=== PATIENT | female | born 1940 | race Two or more races ===

== ENCOUNTER 2016-10-09 10:26 | Outpatient (CLI) | payer MEDICARE, BC ==
--- NOTE | 2016-10-12 09:54 | Mammography Report ---
DIGITAL BILATERAL SCREENING MAMMOGRAM: 10/09/2016 CLINICAL HISTORY: A 76-year-old female in for routine screening mammogram. The patient had a maternal cousin with breast cancer at age 50. The patient has had multiple surgeries involving the left breas t. These biopsies were benign. They were done in 1988 and 1992. COMPARISON: 07/14/2007, 12/06/2008, 02/09/2010, 04/23/2011, 05/04/2013, 06/08/2014, 05/28/2015. TECHNIQUE: Craniocaudad and oblique lateral views of each breast were obtained with Transfercar full fiel d digital mammography. To complement the examination, axillary exaggerated craniocaudad views of each breast were done. FINDINGS: Heterogeneously dense breasts are noted bilaterally. No significant clusters of calcification are seen. No significant masses are noted. No significant ch anges are seen. IMPRESSION: THE BREASTS APPEAR RADIOGRAPHICALLY BENIGN. BIRADS CATEGORY 1-NEGATIVE. RECOMMENDATION: ANNUAL BILATERAL SCREENING MAMMOGRAPHY. STANDARD QUALIFYING STATEMENTS 1. This examination was reviewed with the aid of Computer-Aided Detection (CAD). 2. A negative or benign imaging report should not delay biopsy if clinically suspicious findings are present. Consider surgical consultation if warranted. More than 5% of cancers are not identified by i maging. 3. Dense breasts may obscure an underlying neoplasm. JOB #: [id number] EXT JOB #:[id number]
== END 2016-10-09 10:27 | disposition home or self-care (01) ==
LOC: DI.N 10:26
PROVIDERS: ATTEND Internal Medicine
DX: Z12.31 Encounter for screening mammogram for malignant neoplasm of breast (principal)
CPT/HCPCS: 77067

== ENCOUNTER 2016-12-17 10:35 | Outpatient (CLI) | payer MEDICARE, BC ==
[2016-12-17 19:36] LABS: BASOPHILS # (AUTO) 0.1 10^3/uL (0.0-0.1); BILIRUBIN,URINE NEGATIVE (NEGATIVE); EOSINOPHILS # (AUTO) 0.2 10^3/uL (0.0-0.7); EOSINOPHILS % (AUTO) 3.9 %; HCT - HEMATOCRIT 39.2 % (37.0-47.0); HGB - HEMOGLOBIN 12.5 g/dL (12.0-16.0); LYMPHOCYTES # (AUTO) 2.2 10^3/uL (1.5-3.5); LYMPHOCYTES % (AUTO) 38.4 %; MEAN CORPUSCULAR HEMOGLOBIN 27.3 pg (27.0-31.0); MEAN CORPUSCULAR HGB CONC 31.8 g/dL (32.0-36.0); MEAN CORPUSCULAR VOLUME 85.8 fL (81.0-99.0); MEAN PLATELET VOLUME 9.5 fL (7.9-10.8); MONOCYTES # (AUTO) 0.3 10^3/uL (0.0-1.0); MONOCYTES % (AUTO) 5.5 %; NEUTROPHILS # (AUTO) 2.9 10^3/uL (1.5-6.6); NEUTROPHILS % (AUTO) 51.2 %; NUCLEATED RED BLOOD CELLS AUTO 0.1 /100WBC; PH,URINE 5.5 PH (5.0-7.5); RED BLOOD COUNT 4.57 10^6/uL (4.20-5.40); UNCORRECTED WHITE BLOOD COUNT 5.7 x10^3/uL; WHITE BLOOD COUNT 5.7 x10^3/uL (4.8-10.8)
[2016-12-17 19:53] LABS: HEMOGLOBIN A1C 1.02 g/dL
[2016-12-17 19:58] LABS: UA w/ MICROSCOPIC CHARGE YES; WBC,URINE 0-3 /HPF (0-5)
[2016-12-17 19:59] LABS: ALBUMIN/GLOBULIN RATIO 1.4 (1.0-2.2); BILIRUBIN,TOTAL 0.6 mg/dL (0.2-1.0); BUN - BLOOD UREA NITROGEN 15 mg/dL (6-20); CALCIUM 9.4 mg/dL (8.5-10.3); CARBON DIOXIDE - CO2 28 mmol/L (21-32); CHLORIDE 103 mmol/L (101-111); CHOL/HDL RATIO 3.9 (<4.4); CHOLESTEROL 190 mg/dL; CREATININE 0.6 mg/dL (0.4-1.0); GFR - MDRD 97 (>89); GLUCOSE 143 mg/dL (70-100); HDL CHOLESTEROL 49 mg/dL; LDL/HDL RATIO 2.4 (<4.4); POTASSIUM 4.1 mmol/L (3.5-5.0); SODIUM 138 mmol/L (135-145); TOTAL PROTEIN 7.1 g/dL (6.7-8.2); TRIGLYCERIDES 122 mg/dL; URIC ACID 4.7 mg/dL (2.6-7.2); VLDL CHOLESTEROL 24 mg/dL
== END 2016-12-17 10:36 | disposition home or self-care (01) ==
LOC: LAB.N 10:35
PROVIDERS: ATTEND Internal Medicine
DX: Z79.899 Other long term (current) drug therapy (principal); I10 Essential (primary) hypertension; E04.1 Nontoxic single thyroid nodule; Z87.11 Personal history of peptic ulcer disease; E78.5 Hyperlipidemia, unspecified; E11.9 Type 2 diabetes mellitus without complications; M81.0 Age-related osteoporosis without current pathological fracture
CPT/HCPCS: 36415; 80053; 80061; 81001; 81003; 82043; 82306; 82570; 82607; 83036; 84443; 84550; 85025

== ENCOUNTER 2017-06-25 07:55 | Outpatient (CLI) | payer MEDICARE, BC | END 2017-06-25 07:56 | disposition home or self-care (01) | LOC: EMS 07:55 | PROVIDERS: ATTEND Surgery | DX: R11.2 Nausea with vomiting, unspecified (principal) | CPT/HCPCS: A0425; A0427 ==

== ENCOUNTER 2017-06-25 08:43 | Emergency (ER) | payer MEDICARE, BC ==
[2017-06-25 09:15] LABS: BASOPHILS % (AUTO) 0.5 %; EOSINOPHILS % (AUTO) 0.2 %; LYMPHOCYTES # (AUTO) 0.9 10^3/uL (1.5-3.5); LYMPHOCYTES % (AUTO) 15.4 %; MEAN CORPUSCULAR HEMOGLOBIN 27.9 pg (27.0-31.0); MEAN CORPUSCULAR HGB CONC 33.2 g/dL (32.0-36.0); MEAN CORPUSCULAR VOLUME 84.1 fL (81.0-99.0); MEAN PLATELET VOLUME 9.7 fL (7.9-10.8); MONOCYTES # (AUTO) 0.5 10^3/uL (0.0-1.0); NEUTROPHILS # (AUTO) 4.3 10^3/uL (1.5-6.6); NEUTROPHILS % (AUTO) 75.9 %; PLT - PLATELET COUNT 169 10^3/uL (130-450); RED BLOOD COUNT 5.02 10^6/uL (4.20-5.40); RED CELL DISTRIBUTION WIDTH 14.2 % (12.0-15.0); WHITE BLOOD COUNT 5.7 x10^3/uL (4.8-10.8)
[2017-06-25] MEDS ORDERED: SODIUM CHLORIDE 0.9% 1,000 ML IV ONE (09:19)
[2017-06-25 09:25] LABS: ALBUMIN 3.8 g/dL (3.2-5.5); ALBUMIN/GLOBULIN RATIO 1.2 (1.0-2.2); BILIRUBIN,TOTAL 0.5 mg/dL (0.2-1.0); CALCIUM 8.2 mg/dL (8.5-10.3); CREATININE 0.6 mg/dL (0.4-1.0); TOTAL PROTEIN 6.9 g/dL (6.7-8.2)
[2017-06-25 09:28] LABS: BILIRUBIN,URINE NEGATIVE (NEGATIVE); GLUCOSE, URINE (UA) >=1000 mg/dL (NEGATIVE); KETONES,URINE (UA) NEGATIVE (NEGATIVE); LEUKOCYTE ESTERASE, URINE NEGATIVE (NEGATIVE); NITRITE,URINE NEGATIVE (NEGATIVE); OCCULT BLOOD,URINE NEGATIVE (NEGATIVE); PROTEIN,URINE NEGATIVE (NEGATIVE); UROBILINOGEN,URINE 0.2 (NORMAL) E.U./dL (NORMAL)
[2017-06-25 09:29] LABS: CLARITY,URINE CLEAR (CLEAR)
--- NOTE | 2017-06-25 10:28 | ED Physician Documentation ---
History of Present Illness - Stated complaint Stated Complaint: N/V/D - Chief complaint Chief Complaint: General - History obtained from History obtained from: Patient, EMS - Treatment prior to arrival Treatment prior to arrival: Medics administered D50 W and Zofran IV. - Additonal information Additional information: The patient is a 77-year-old female with history of type 2 diabetes, who presents after developing drowsiness and generalized weakness at home. She has had the "stomach flu" for the past 3 days with vomiting and diarrhea. She has vomited only once in the past 24 hours. She reports decreased oral intake for the past 3 days because of nausea. She denies abdominal pain currently. She denies fever, cough, or dysuria. When 911 was called, medics found her hypoglycemic with a blood sugar of 68. One amp of D50 W and 4 mg Zofran were administered IV. The patient's symptoms resolved, and at the time of arrival in the emergency department she is feeling asymptomatic. She denies history of similar symptoms in the past. Her son had "stomach flu" symptoms for 1 day prior to the patient developing similar viral symptoms. Review of Systems Constitutional: reports: Fatigue. denies: Fever Eyes: denies: Decreased vision Ears: denies: Tinnitus/ringing Nose: denies: Congestion Throat: denies: Sore throat Cardiac: denies: Chest pain / pressure Respiratory: denies: Dyspnea, Cough GI: reports: Nausea, Vomiting (Once in past 24 hours.), Diarrhea. denies: Abdominal Pain : denies: Dysuria Skin: denies: Rash Musculoskeletal: denies: Back pain, Extremity swelling Neurologic: denies: Focal weakness, Numbness, Headache PD PAST MEDICAL HISTORY - Past Medical History Past Medical History: Yes Endocrine/Autoimmune: Type 2 diabetes - Present Medications Home Medications: Ambulatory Orders Medication Instructions Recorded Confirmed Promethazine [Phenergan] 25 - 50 mg PO Q6H PRN #10 tab 06/25/17 - Allergies Allergies/Adverse Reactions: Allergies Allergy/AdvReac Type Severity Reaction Status Date / Time Penicillins Allergy Unknown Verified 06/25/17 08:56 - Social History Does the pt smoke?: No Smoking Status: Never smoker PD ED PE NORMAL - Vitals Vital signs reviewed: Yes (hypertensive) - General General: Alert and oriented X 3, Well developed/nourished - HEENT HEENT: Atraumatic, EOMI, Moist mucous membranes, Pharynx benign - Neck Neck: Supple, no meningeal sign, No adenopathy, No JVD - Cardiac Cardiac: RRR - Respiratory Respiratory: No respiratory distress, Clear bilaterally - Abdomen Abdomen: Soft, Non tender - Back Back: No CVA TTP - Derm Derm: No rash - Extremities Extremities: No edema, No calf tenderness / cord - Neuro Neuro: Alert and oriented X 3, No motor deficit, No sensory deficit, Normal speech Results - Vitals Vitals: Oxygen O2 Source Room air - Labs Labs: Laboratory Tests 06/25/17 06/25/17 06/25/17 08:48 09:00 09:00 WBC 5.7 RBC 5.02 Hgb 14.0 Hct 42.2 MCV 84.1 MCH 27.9 MCHC 33.2 RDW 14.2 Plt Count 169 MPV 9.7 Neut # 4.3 Lymph # 0.9 L [place] # 0.5 Eos # 0.0 Baso # 0.0 Absolute Nucleated RBC 0.00 Nucleated RBC % 0.0 Sodium 131 L Potassium 3.1 L Chloride 101 Carbon Dioxide 22 Anion Gap 8.0 BUN 16 Creatinine 0.6 Estimated GFR (MDRD) 97 Glucose 235 H POC Whole Bld Glucose 259 H Calcium 8.2 L Total Bilirubin 0.5 AST 36 ALT 41 Alkaline Phosphatase 46 Total Protein 6.9 Albumin 3.8 Globulin 3.1 Albumin/Globulin Ratio 1.2 Lipase 37 Urine Color Urine Clarity Urine pH Ur Specific [place] Urine Protein Urine Glucose (UA) Urine Ketones Urine Occult Blood Urine Nitrite Urine Bilirubin Urine Urobilinogen Ur Leukocyte Esterase Ur Microscopic Review Urine Culture Comments 06/25/17 06/25/17 09:15 10:20 WBC RBC Hgb Hct MCV MCH MCHC RDW Plt Count MPV Neut # Lymph # [place] # Eos # Baso # Absolute Nucleated RBC Nucleated RBC % Sodium Potassium Chloride Carbon Dioxide Anion Gap BUN Creatinine Estimated GFR (MDRD) Glucose POC Whole Bld Glucose 150 H Calcium Total Bilirubin AST ALT Alkaline Phosphatase Total Protein Albumin Globulin Albumin/Globulin Ratio Lipase Urine Color YELLOW Urine Clarity CLEAR Urine pH 6.0 Ur Specific [place] <=1.005 Urine Protein NEGATIVE Urine Glucose (UA) >=1000 H Urine Ketones NEGATIVE Urine Occult Blood NEGATIVE Urine Nitrite NEGATIVE Urine Bilirubin NEGATIVE Urine Urobilinogen 0.2 (NORMAL) Ur Leukocyte Esterase NEGATIVE Ur Microscopic Review NOT INDICATED Urine Culture Comments NOT INDICATED PD MEDICAL DECISION MAKING - ED course Complexity details: reviewed results, re-evaluated patient, considered differential, d/w patient, d/w family ED course: The patient's presentation is significant for hypoglycemic episode in a diabetic patient who has had poor oral intake for the past 3 days. Her nausea and diarrhea are most likely due to a viral gastroenteritis, similar to illness her son had prior to the onset of her symptoms. There is no clinical indication of acute abdomen, and she has no sign of urinary tract infection. CBC is normal with a white count of 5.9. Chemistry panel reveals hyperglycemia at 235 (after administration of D50 W by medics). Sodium and potassium are slightly low at 131 and 3.1. Urinalysis is negative except for elevated glucose of greater than 1000. Treatment in the emergency department included administration of normal saline 1 L IV. The patient remained asymptomatic while in the emergency department. Repeat fingerstick blood sugar is improving at 150. She demonstrates ability to drink juice and eat crackers without recurrent nausea. She is being discharged with prescription for Phenergan. I discussed with her and her family the diagnosis, symptomatic treatment and outpatient follow-up, as well as potentially worrisome signs or symptoms that should prompt reevaluation in the emergency department. Departure - Departure Disposition: 01 Home, Self Care Clinical Impression: Hypoglycemia associated with diabetes Condition: Stable Instructions: ED Diabetes Hypoglycemia Oral Agent Follow-Up: Laure Jernigan MD [Primary Care Provider] - Prescriptions: Promethazine [Phenergan] 25 - 50 mg PO Q6H PRN #10 tab PRN Reason: Nausea / Vomiting Comments: Be sure to eat regularly to maintain your blood sugar. You can use Phenergan as prescribed if needed for nausea. Follow up with your primary physician within 1-2 weeks. Call to schedule an appointment. Return to the emergency department if you develop persistent vomiting, recurrent dizziness or low blood sugar, or otherwise worsening symptoms. Discharge Date/Time: 06/25/17 10:49
[2017-06-25 10:49] VITALS: BP 145/68
== END 2017-06-25 10:49 | disposition home or self-care (01) ==
LOC: EDUNIT# → ED 08:43
DX: E11.649 Type 2 diabetes mellitus with hypoglycemia without coma (principal)
CPT/HCPCS: 36415; 80053; 81001; 81003; 83690; 85025; 87086; 96360; 99283

== ENCOUNTER 2017-07-12 14:32 | Outpatient (CLI) | payer MEDICARE, BC ==
[2017-07-12 15:09] LABS: CALCIUM 9.9 mg/dL (8.5-10.3); CREATININE 0.5 mg/dL (0.4-1.0)
[2017-07-12 15:20] LABS: HB2 TOTAL 14.2 g/dL; HEMOGLOBIN A1C 0.95 g/dL; HEMOGLOBIN A1C % 8.3 % (4.6-6.2)
== END 2017-07-12 14:33 | disposition home or self-care (01) ==
LOC: LAB 14:32
PROVIDERS: ATTEND Internal Medicine
DX: E11.9 Type 2 diabetes mellitus without complications (principal); I10 Essential (primary) hypertension; Z79.899 Other long term (current) drug therapy
CPT/HCPCS: 36415; 80048; 82607; 83036

== ENCOUNTER 2017-11-11 09:58 | Outpatient (CLI) | payer MEDICARE, BC ==
--- NOTE | 2017-11-12 09:23 | Mammography Report ---
Procedure Date: 11/11/2017 Accession Number: [id number] / [id number] Procedure: MGN - Screening Mammo Dig Bilat CPT Code: FULL RESULT: EXAM: Screening Mammo Dig Bilat DATE: 11/11/2017 10:36 AM CLINICAL HISTORY: 77-year-old female with history of left breast procedure with benign pathology results in 1984 and 1991. TECHNIQUE: Bilateral CC and MLO views were obtained. COMPARISON: 10/09/2016, 05/28/2015, 06/08/2014, 05/04/2013. FINDINGS: The breasts demonstrate heterogeneously dense fibroglandular parenchyma bilaterally. Postprocedural changes are seen in the left breast. Bilateral typically benign coarse calcifications are identified. No suspicious masses, clustered microcalcifications, or regions of architectural distortion are identified. IMPRESSION: Benign findings RECOMMENDATION: Routine annual screening unless otherwise clinically indicated. BIRADS CATEGORY 2: Benign findings STANDARD QUALIFYING STATEMENTS: 1. This examination was reviewed with the aid of Computer-Aided Detection (CAD). 2. A negative or benign imaging report should not delay biopsy if clinically suspicious findings are present. Consider surgical consultation if warrented. More than 5% of cancers are not identified by imaging. 3. Dense breasts may obscure an underlying neoplasm.
== END 2017-11-11 09:59 | disposition home or self-care (01) ==
LOC: DI.N 09:58
PROVIDERS: ATTEND Internal Medicine
DX: Z12.31 Encounter for screening mammogram for malignant neoplasm of breast (principal)
CPT/HCPCS: 77067

== ENCOUNTER 2018-03-15 14:50 | Outpatient (CLI) | payer MEDICARE, BC ==
[2018-03-15 15:22] LABS: CALCIUM 9.7 mg/dL (8.5-10.3); CREATININE 0.7 mg/dL (0.4-1.0)
[2018-03-15 15:44] LABS: HB2 TOTAL 14.2 g/dL; HEMOGLOBIN A1C % 8.6 % (4.6-6.2)
[2018-03-15 15:47] LABS: FERRITIN 82.4 ng/mL (11.0-306.8)
== END 2018-03-15 14:51 | disposition home or self-care (01) ==
LOC: LAB 14:50
PROVIDERS: ATTEND Internal Medicine
DX: I10 Essential (primary) hypertension (principal); Z79.899 Other long term (current) drug therapy; E11.9 Type 2 diabetes mellitus without complications; G25.81 Restless legs syndrome; Z87.19 Personal history of other diseases of the digestive system
CPT/HCPCS: 36415; 80048; 82607; 82728; 83036

== ENCOUNTER 2018-07-25 10:22 | Outpatient (CLI) | payer MEDICARE, BC ==
--- NOTE | 2018-07-25 21:15 | CARDIAC PROCEDURE NOTE ---
DATE OF SERVICE: 07/25/2018 Physician: Laure Jernigan MD EXERCISE CARDIOLITE PROTOCOL: Adam. HEART RATE RESPONSE: Baseline 54 to 136. BLOOD PRESSURE RESPONSE: 180/64 to maximum 182/70. REASON FOR STOPPING TEST: Patient was unable to keep up with the treadmill. SYMPTOMS: No chest pain. ST-SEGMENT RESPONSE: No significant ST-segment elevations or depressions Arrhythmias: occasional PVCs. IMPRESSION 1. No symptoms. 2. No significant EKG changes. CONCLUSION: Await Cardiolite portion of test. TD: 07/25/2018 18:15 MTDD
== END 2018-07-25 10:23 | disposition home or self-care (01) ==
LOC: DI 10:22
PROVIDERS: ATTEND Internal Medicine
DX: R07.9 Chest pain, unspecified (principal)
CPT/HCPCS: 78452; 93017; A9500

== ENCOUNTER 2018-11-15 13:26 | Outpatient (CLI) | payer MEDICARE, BC ==
--- NOTE | 2018-11-15 15:13 | Mammography Report ---
Reason: SCREENING MAMMO Procedure Date: 11/15/2018 Accession Number: [id number] / [id number] Procedure: MGN - Screening Mammo Dig Bilat CPT Code: FULL RESULT: EXAM: Screening Mammo Dig Bilat DATE: 11/15/2018 1:47 PM CLINICAL HISTORY: Routine screening. No reported personal or family history of breast cancer. TECHNIQUE: (B) - Bilateral CC and MLO views were obtained. COMPARISON: 11/01/2017 through 06/08/2014. PARENCHYMAL PATTERN: (D) - The breasts demonstrate heterogeneously dense fibroglandular parenchyma bilaterally. FINDINGS: Right breast: There is a 19 mm grouping of calcifications in the posterior 3:00 breast 5.5 cm from the nipple. No suspicious masses or areas of distortion. Left breast: There are no suspicious masses, calcifications, or areas of distortion. IMPRESSION: Incomplete examination. BI-RADS category 0. 19 mm grouping of calcifications posterior 3:00 right breast. RECOMMENDATION: (ADDMAM) - Recommend additional mammographic views. Right breast. BI-RADS CATEGORY: (0) - Incomplete Examination - need additional evaluation. STANDARD QUALIFYING STATEMENTS: 1. This examination was not reviewed with the aid of Computer-Aided Detection (CAD). 2. A negative or benign imaging report should not preclude biopsy if clinically suspicious findings are present. 3. Dense breasts may obscure an underlying neoplasm. 4. This examination was reviewed without the aid of 3D breast imaging (tomosynthesis).
== END 2018-11-15 13:27 | disposition home or self-care (01) ==
LOC: DI.N 13:26
PROVIDERS: ATTEND Internal Medicine
DX: Z12.31 Encounter for screening mammogram for malignant neoplasm of breast (principal); R92.1 Mammographic calcification found on diagnostic imaging of breast
CPT/HCPCS: 77067

== ENCOUNTER 2018-11-21 12:29 | Outpatient (CLI) | payer MEDICARE, BC ==
--- NOTE | 2018-11-21 17:02 | Mammography Report ---
Reason: ABNORMAL MAMMOGRAM Procedure Date: 11/21/2018 Accession Number: [id number] / [id number] Procedure: ALAYNA - Diag Special Views Dig RT CPT Code: FULL RESULT: EXAM: Diag Special Views Dig RT DATE: 11/21/2018 1:40 PM CLINICAL HISTORY: Diagnostic examination. TECHNIQUE: (R) - Right right breast spot CC, spot magnified CC, medially exaggerated CC magnification, right spot magnified MLO, right ML and right spot magnified ML views obtained. Focused right breast ultrasound is performed. COMPARISON: 11/15/2018 through 06/08/2014. PARENCHYMAL PATTERN: (D) - The breast(s) demonstrate(s) heterogeneously dense fibroglandular parenchyma. FINDINGS: The grouping of calcifications in question demonstrates no definite pleomorphism and no associated mass or architectural distortion, probably benign. Focused right breast ultrasound of the medial lower breast demonstrates normal breast parenchyma with no mass by ultrasound. There are no suspicious masses, or areas of distortion. IMPRESSION: Probably Benign. BI-RADS category 3. RECOMMENDATION: (6MOS) - Recommend 6 month follow-up exam. Right breast diagnostic mammography at the time of annual left breast screening mammography. BI-RADS CATEGORY: (3) - Probably Benign. STANDARD QUALIFYING STATEMENTS: 1. This examination was not reviewed with the aid of Computer-Aided Detection (CAD). 2. A negative or benign imaging report should not preclude biopsy if clinically suspicious findings are present. 3. Dense breasts may obscure an underlying neoplasm. 4. This examination was reviewed with the aid of 3D breast imaging (tomosynthesis).
== END 2018-11-21 12:30 | disposition home or self-care (01) ==
LOC: DI 12:29
PROVIDERS: ATTEND Internal Medicine
DX: R92.8 Other abnormal and inconclusive findings on diagnostic imaging of breast (principal)
CPT/HCPCS: 76642

== ENCOUNTER 2018-12-09 10:16 | Outpatient (CLI) | payer MEDICARE, BC ==
[2018-12-09 12:29] LABS: BASOPHILS # (AUTO) 0.1 10^3/uL (0.0-0.1); BASOPHILS % (AUTO) 0.8 %; EOSINOPHILS # (AUTO) 0.2 10^3/uL (0.0-0.7); EOSINOPHILS % (AUTO) 3.4 %; HGB - HEMOGLOBIN 11.7 g/dL (12.0-16.0); LYMPHOCYTES # (AUTO) 1.7 10^3/uL (1.5-3.5); LYMPHOCYTES % (AUTO) 25.6 %; MEAN CORPUSCULAR HEMOGLOBIN 27.9 pg (27.0-31.0); MEAN CORPUSCULAR HGB CONC 31.7 g/dL (32.0-36.0); MEAN CORPUSCULAR VOLUME 88.1 fL (81.0-99.0); MEAN PLATELET VOLUME 10.6 fL (7.9-10.8); MONOCYTES # (AUTO) 0.4 10^3/uL (0.0-1.0); MONOCYTES % (AUTO) 6.7 %; NEUTROPHILS # (AUTO) 4.1 10^3/uL (1.5-6.6); PLT - PLATELET COUNT 188 10^3/uL (130-450); RED BLOOD COUNT 4.19 10^6/uL (4.20-5.40); RED CELL DISTRIBUTION WIDTH 13.6 % (12.0-15.0); WHITE BLOOD COUNT 6.6 x10^3/uL (4.8-10.8)
[2018-12-09 12:34] LABS: BILIRUBIN,URINE NEGATIVE (NEGATIVE); GLUCOSE, URINE (UA) NEGATIVE (NEGATIVE); KETONES,URINE (UA) NEGATIVE (NEGATIVE); LEUKOCYTE ESTERASE, URINE NEGATIVE (NEGATIVE); NITRITE,URINE NEGATIVE (NEGATIVE); OCCULT BLOOD,URINE NEGATIVE (NEGATIVE); PH,URINE 5.5 PH (5.0-7.5); PROTEIN,URINE NEGATIVE (NEGATIVE); UROBILINOGEN,URINE 0.2 (NORMAL) E.U./dL (NORMAL)
[2018-12-09 12:37] LABS: CLARITY,URINE CLEAR (CLEAR)
[2018-12-09 12:47] LABS: ALBUMIN/GLOBULIN RATIO 1.3 (1.0-2.2); ALKALINE PHOSPHATASE 33 IU/L (42-121); ALT ALANINE AMINOTRANSFERASE 15 IU/L (10-60); AST ASPARTATE AMINOTRANSFERASE 18 IU/L (10-42); BILIRUBIN,TOTAL 0.4 mg/dL (0.2-1.0); BUN - BLOOD UREA NITROGEN 16 mg/dL (6-20); CALCIUM 9.5 mg/dL (8.5-10.3); CARBON DIOXIDE - CO2 28 mmol/L (21-32); CHLORIDE 105 mmol/L (101-111); CHOL/HDL RATIO 4.4 (<4.4); CHOLESTEROL 197 mg/dL; CREATININE 0.7 mg/dL (0.4-1.0); GFR - MDRD 81 (>89); GLUCOSE 152 mg/dL (70-100); HDL CHOLESTEROL 45 mg/dL; LDL CHOLESTEROL,CALCULATED 126 mg/dL; LDL/HDL RATIO 2.8 (<4.4); SODIUM 140 mmol/L (135-145); TOTAL PROTEIN 7.2 g/dL (6.7-8.2); VLDL CHOLESTEROL 26 mg/dL
[2018-12-09 12:49] LABS: HB2 TOTAL 12.7 g/dL; HEMOGLOBIN A1C 0.82 g/dL; HEMOGLOBIN A1C % 8.1 % (4.6-6.2)
[2018-12-09 13:09] LABS: CREATININE,URINE 72.7 mg/dL; MICROALBUM/CREATININE RATIO,UR 23.4 ug/mg (<30.0); MICROALBUMIN,URINE 1.7 mg/dL (0-300.0)
== END 2018-12-09 23:59 | disposition home or self-care (01) ==
LOC: LAB.N 10:16
PROVIDERS: ATTEND Internal Medicine
DX: E78.5 Hyperlipidemia, unspecified (principal); M81.0 Age-related osteoporosis without current pathological fracture; E11.9 Type 2 diabetes mellitus without complications; N32.81 Overactive bladder; R51 Headache; K21.9 Gastro-esophageal reflux disease without esophagitis; R32 Unspecified urinary incontinence; H91.90 Unspecified hearing loss, unspecified ear; I10 Essential (primary) hypertension
CPT/HCPCS: 36415; 80053; 80061; 81001; 81003; 82043; 82306; 82570; 83036; 83721; 84443; 85025; 87086

== ENCOUNTER 2019-04-19 11:44 | Outpatient (CLI) | payer MEDICARE, BC ==
--- NOTE | 2019-04-19 12:41 | XRAY Report ---
Reason: COUGH Procedure Date: 04/19/2019 Accession Number: [id number] / [id number] Procedure: XR - Chest 2 View X-Ray CPT Code: 28354 Final Report FULL RESULT: EXAM: CHEST RADIOGRAPHY 2 VIEWS EXAM DATE: 04/19/2019. CLINICAL HISTORY: Cough. COMPARISON: ABDOMEN 07/30/2010 10:46 AM P CXR 08/20/2006 9:51 PM. TECHNIQUE: PA and lateral views. FINDINGS: Lungs/Pleura: Normal vasculature. Patchy opacity in the right lower lung. Lungs are otherwise clear. No pleural fluid or pneumothorax. Mediastinum: Cardiac and mediastinal contours are normal. Atherosclerosis of the aorta. Bones: Degenerative changes of the spine. Right shoulder prosthesis. IMPRESSION: Patchy opacities in right lower lung consistent with scarring, atelectasis and/or pneumonia. Otherwise, no acute abnormality. RADIA The call report notification system was initiated by Dr. Patricio Clark at 12:25 PM on 04/19/2019. The above call report findings were discussed with Dr. Jernigan by Dr. Patricio Clark at 12:40 PM on 04/19/2019.
== END 2019-04-19 11:45 | disposition home or self-care (01) ==
LOC: DI 11:44
PROVIDERS: ATTEND Internal Medicine
DX: R05 Cough (principal)
CPT/HCPCS: 71046

== ENCOUNTER 2019-05-23 15:22 | Outpatient (CLI) | payer MEDICARE, BC ==
--- NOTE | 2019-05-24 14:30 | XRAY Report ---
Reason: PNEUMONIA Procedure Date: 05/23/2019 Accession Number: [id number] / [id number] Procedure: XRN - Chest 2 View X-Ray CPT Code: 31254 Final Report FULL RESULT: EXAM: CHEST RADIOGRAPHY EXAM DATE: 05/23/2019 03:38 PM. CLINICAL HISTORY: Has been sick since first week of March 2019. Pneumonia. COMPARISON: 04/19/2019. TECHNIQUE: 2 views. FINDINGS: Lungs/Pleura: Mild bilateral interstitial prominence and bronchial wall thickening with crowding of basilar lung markings. No confluent consolidation or ad pulmonary edema. No pneumothorax or pleural effusion. Mediastinum: Normal heart size. Tortuous calcified aorta. Bones: No acute osseous findings identified. Right shoulder arthroplasty partially seen. Stable mild thoracic spondylosis. IMPRESSION: 1. Bibasilar hypoventilatory change. 2. Prominent lung markings, nonspecific for age. Cannot exclude bronchitis. No consolidative pneumonia or heart failure. 3. Senescent aorta. RADIA
== END 2019-05-23 15:23 | disposition home or self-care (01) ==
LOC: DI.N 15:22
PROVIDERS: ATTEND Internal Medicine
DX: J18.9 Pneumonia, unspecified organism (principal)
CPT/HCPCS: 71046

== ENCOUNTER 2019-11-17 13:01 | Outpatient (CLI) | payer MEDICARE, BC ==
--- NOTE | 2019-11-20 09:21 | Mammography Report ---
BILATERAL DIGITAL DIAGNOSTIC MAMMOGRAM 3D/2D: 11/17/2019 CLINICAL: 6 month follow-up right breast calcifications. Comparison is made to exams dated: 11/21/2018 mammogram, 11/15/2018 mammogram, 11/11/2017 mammogram, mammogram, 05/28/2015 mammogram, and 06/08/2014 mammogram - [facility]. The t issue of both breasts is heterogeneously dense. This may lower the sensitivity of mammography. There are segmental linear, branching, dot-dash, fine and pleomorphic calcifications in the right enmanuel ast at 4 o'clock posterior depth. These are seen in additional views. These are more prominent and increased in number since the previous exam. No other significant masses, calcifications, or other findings are seen in either breast. IMPRESSION: INCOMPLETE: NEEDS ADDITIONAL IMAGING EVALUATION The suspicious calcifications in the right breast are concerning for DCIS. An ultrasound to assess fo r underlying mass is recommended. This was performed immediately following this exam. This exam was interpreted at Station ID: [id number]. NOTE: For mammograms, a report in lay terms will be sent to the patient. Approximately 15% of breast malignancies will not be visualized mammographically. In the management of a palpable breast mass, a negative mammogram must not discourage biopsy of a clinically suspicious lesion. Electronically Signed By: Liliane patel/:11/17/2019 16:50:33 ACR BI-RADS Category 0: Incomplete [id number] PARENCHYMAL PATTERN: (D) - The breast(s) demonstrate(s) heterogeneously dense fibroglandular tyrel reza. BI-RADS CATEGORY: (0) - 0 Ultrasound [id number] Immediate follow-up LATERALITY: (B)
--- NOTE | 2019-11-20 09:21 | Ultrasound Report ---
LIMITED ULTRASOUND OF RIGHT BREAST: 11/17/2019 CLINICAL: Patient returns today to evaluate an architectural distortion in the right breast. Comparison is made to exams dated: 11/17/2019 mammogram and 11/17/2019 mammogram - [facility]. Real-time and continuous wave Doppler ultrasound of the right breast were performed. No focal mass, shadowing, or significant abnormalities were seen sonographically in the right breast. IMPRESSION: SUSPICIOUS OF MALIGNANCY No sonographic correlate to suspicious calcifications seen on mammography. Right breast stereotactic biopsy is recommended. Findings and recommendations discussed with the patient by Dr. Lyn Garcias immediately following the exam. This exam was interpreted at Station ID: [id number]. Electronically Signed By: Liliane patel/:11/17/2019 16:52:37 Ultrasound BI-RADS: 4b Moderate suspicion of malignancy BI-RADS CATEGORY: (4b) - Mod Susp None [id number] Immediate follow-up LATERALITY: ()
== END 2019-11-17 13:02 | disposition home or self-care (01) ==
LOC: DI 13:01
PROVIDERS: ATTEND Internal Medicine
DX: R92.8 Other abnormal and inconclusive findings on diagnostic imaging of breast (principal)
CPT/HCPCS: 76642; 77066

== ENCOUNTER 2019-12-14 08:44 | Outpatient (CLI) | payer MEDICARE, BC ==
[~2019-12-14 08:44] MED LIST: BUFFERED LIDOCAINE 10 ML SYRINGE ONE; BUPIVACAINE 0.5% PF 10 ML VIAL ONE
[2019-12-14] MEDS ORDERED: BUPIVACAINE 0.5% PF 10 ML VIAL IM ONE (11:27)
[2019-12-14] MEDS ORDERED: BUFFERED LIDOCAINE 10 ML SYRINGE IU ONE (11:29)
--- NOTE | 2019-12-20 07:21 | Mammography Report ---
STEREOTACTIC GUIDED BIOPSY RIGHT BREAST WITH POST DIGITAL MAMMOGRAPHIC IMAGING AND RADIOGRAPHIC SPECI MEN IMAGIN12/14/2019 CLINICAL: Microcalcifications right breast. PATIENT CONSENT: Risks (minor bleeding, infection, vasovagal reaction and repeat procedure), benefits and alternatives were explained to the patient and written informed consent was obtained. Correlation is made to exams dated: 11/17/2019 ultrasound, 11/17/2019 mammogram, 11/21/2018 ultrasound, 11/21/2018 mammogram, 11/15/2018 mammogram, and 11/11/2017 mammogram - [facility]. A stereotactic guided biopsy was performed for the area of clustered pleomorphic calcifications locat ed in the right breast at 4 o'clock posterior depth. The skin was prepped in the usual manner. Loca l anesthetic was administered to the access site. A small incision was made in the breast. The abno rmality was approached from the medial aspect using an upright mammography unit. A biopsy needle was placed adjacent to the abnormality under computer guidance and confirmatory stereotactic mammography images were obtained to document needle placement. Once the needle was documented to be in the velia ect location, ten specimens were obtained using an automated biopsy gun. The patient received additi onal local anesthetic during the procedure. A sterile dressing was applied to the access site. A bio psy clip was deployed, however, post procedure digital mammographic imaging demonstrated the clip was not present. The specimens were sent to the laboratory for pathological analysis. IMPRESSION: STEREOTACTIC GUIDED BIOPSY MALIGNANT Stereotactic guided biopsy of the area of clustered pleomorphic calcifications in the right breast po sterior depth was performed. The imaged specimens includes the calcifications. Pathology indicates malignant ductal carcinoma in situ (DCIS). Pathology results are concordant with imaging findings. A surgical/oncologic consultation is recommended. This exam was interpreted at Station ID: [id number]. Yanci ware,aty/:12/18/2019 19:51:45 BI-RADS CATEGORY: () - Unspecified - other recall n/a LATERALITY: (B)
== END 2019-12-14 08:45 | disposition home or self-care (01) ==
LOC: DI 08:44
PROVIDERS: ATTEND Internal Medicine
DX: D05.11 Intraductal carcinoma in situ of right breast (principal)
CPT/HCPCS: 19081

== ENCOUNTER 2020-05-28 10:29 | Outpatient (CLI) | payer MEDICARE, BC ==
[2020-05-28 18:14] LABS: MICROALBUM/CREATININE RATIO,UR 16.7 ug/mg (<30.0); MICROALBUMIN,URINE 0.9 mg/dL (0-300.0)
[2020-05-28 18:16] LABS: BASOPHILS % (AUTO) 0.9 %; EOSINOPHILS # (AUTO) 0.2 10^3/uL (0.0-0.7); EOSINOPHILS % (AUTO) 3.7 %; HCT - HEMATOCRIT 39.3 % (37.0-47.0); HGB - HEMOGLOBIN 12.5 g/dL (12.0-16.0); LYMPHOCYTES % (AUTO) 21.3 %; MEAN CORPUSCULAR HEMOGLOBIN 28.7 pg (27.0-31.0); MEAN CORPUSCULAR HGB CONC 31.8 g/dL (32.0-36.0); MEAN CORPUSCULAR VOLUME 90.1 fL (81.0-99.0); MEAN PLATELET VOLUME 11.6 fL (7.9-10.8); MONOCYTES # (AUTO) 0.4 10^3/uL (0.0-1.0); MONOCYTES % (AUTO) 7.5 %; NEUTROPHILS # (AUTO) 3.1 10^3/uL (1.5-6.6); NEUTROPHILS % (AUTO) 66.2 %; PLT - PLATELET COUNT 193 10^3/uL (130-450); RED BLOOD COUNT 4.36 10^6/uL (4.20-5.40); RED CELL DISTRIBUTION WIDTH 13.2 % (12.0-15.0); WHITE BLOOD COUNT 4.7 x10^3/uL (4.8-10.8)
[2020-05-28 18:29] LABS: ALBUMIN 4.2 g/dL (3.2-5.5); ALBUMIN/GLOBULIN RATIO 1.4 (1.0-2.2); ALKALINE PHOSPHATASE 30 IU/L (42-121); ALT ALANINE AMINOTRANSFERASE 17 IU/L (10-60); AST ASPARTATE AMINOTRANSFERASE 17 IU/L (10-42); BILIRUBIN,TOTAL 0.5 mg/dL (0.2-1.0); BUN - BLOOD UREA NITROGEN 14 mg/dL (6-20); CARBON DIOXIDE - CO2 27 mmol/L (21-32); CHLORIDE 103 mmol/L (101-111); CHOL/HDL RATIO 4.1 (<4.4); CHOLESTEROL 217 mg/dL; CREATININE 0.7 mg/dL (0.4-1.0); GFR - MDRD 80 (>89); GLUCOSE 150 mg/dL (70-100); HDL CHOLESTEROL 53 mg/dL; LDL CHOLESTEROL,CALCULATED 130 mg/dL; LDL/HDL RATIO 2.5 (<4.4); POTASSIUM 4.4 mmol/L (3.5-5.0); SODIUM 138 mmol/L (135-145); TOTAL PROTEIN 7.2 g/dL (6.7-8.2); TRIGLYCERIDES 172 mg/dL; VLDL CHOLESTEROL 34 mg/dL
[2020-05-28 18:56] LABS: THYROID STIMULATING HORMONE 3.11 uIU/mL (0.34-5.60)
[2020-05-28 20:10] LABS: ESTIMATED AVERAGE GLUCOSE 171 mg/dL (70-100); HEMOGLOBIN A1c% 7.6 % (4.27-6.07)
== END 2020-05-28 10:30 | disposition home or self-care (01) ==
LOC: LAB.N 10:29
PROVIDERS: ATTEND Internal Medicine
DX: I10 Essential (primary) hypertension (principal); E78.5 Hyperlipidemia, unspecified; E11.9 Type 2 diabetes mellitus without complications; M81.0 Age-related osteoporosis without current pathological fracture; E04.1 Nontoxic single thyroid nodule; N39.41 Urge incontinence; C50.919 Malignant neoplasm of unspecified site of unspecified female breast; Z79.899 Other long term (current) drug therapy
CPT/HCPCS: 36415; 80053; 80061; 82043; 82306; 82570; 82607; 83036; 83721; 84443; 85025

== ENCOUNTER 2021-01-13 14:02 | Outpatient (CLI) | payer MEDICARE, BC ==
--- NOTE | 2021-01-13 14:38 | XRAY Report ---
PROCEDURE: Finger(s) RT INDICATIONS: RT FINGER DEFORMITY TECHNIQUE: AP hand, 3 views of the fourth finger(s) acquired. COMPARISON: None FINDINGS: BONES: An ossific density is seen overlying the dorsal aspect of the distal interphalangeal joint, li nicole reflecting an avulsion injury. An additional ossific density seen adjacent to the trapezium, which may reflect remote injury. The ca rpal bones are normally aligned. SOFT TISSUES: No acute abnormality. IMPRESSION: 1.Avulsion injury of the fourth distal interphalangeal joint. Reviewed by: Perez Nova MD on 01/13/2021 2:37 PM PDT Approved by: Perez Nova MD on 01/13/2021 2:37 PM PDT Station ID: [id number]
== END 2021-01-13 14:03 | disposition home or self-care (01) ==
LOC: DI 14:02
PROVIDERS: ATTEND Internal Medicine
DX: S63.294A Dislocation of distal interphalangeal joint of right ring finger, initial encounter (principal)

== ENCOUNTER 2021-06-23 10:39 | Outpatient (CLI) | payer MEDICARE, BC ==
[2021-06-23 18:03] LABS: BASOPHILS % (AUTO) 0.4 %; EOSINOPHILS # (AUTO) 0.2 10^3/uL (0.0-0.7); HCT - HEMATOCRIT 36.4 % (37.0-47.0); HGB - HEMOGLOBIN 11.7 g/dL (12.0-16.0); LYMPHOCYTES # (AUTO) 1.5 10^3/uL (1.5-3.5); LYMPHOCYTES % (AUTO) 27.3 %; MEAN CORPUSCULAR HEMOGLOBIN 28.3 pg (27.0-31.0); MEAN CORPUSCULAR HGB CONC 32.1 g/dL (32.0-36.0); MEAN CORPUSCULAR VOLUME 88.1 fL (81.0-99.0); MEAN PLATELET VOLUME 11.2 fL (7.9-10.8); MONOCYTES # (AUTO) 0.5 10^3/uL (0.0-1.0); MONOCYTES % (AUTO) 8.6 %; NEUTROPHILS # (AUTO) 3.3 10^3/uL (1.5-6.6); NEUTROPHILS % (AUTO) 60.3 %; PLT - PLATELET COUNT 200 10^3/uL (130-450); RED BLOOD COUNT 4.13 10^6/uL (4.20-5.40); RED CELL DISTRIBUTION WIDTH 12.9 % (12.0-15.0); WHITE BLOOD COUNT 5.4 x10^3/uL (4.8-10.8)
[2021-06-23 18:58] LABS: CREATININE,URINE 105.1 mg/dL; MICROALBUM/CREATININE RATIO,UR 26.6 ug/mg (<30.0); MICROALBUMIN,URINE 2.8 mg/dL (0-300.0)
[2021-06-23 19:12] LABS: ALBUMIN/GLOBULIN RATIO 1.4 (1.0-2.2); ALKALINE PHOSPHATASE 34 IU/L (42-121); ALT ALANINE AMINOTRANSFERASE 15 IU/L (10-60); AST ASPARTATE AMINOTRANSFERASE 18 IU/L (10-42); BILIRUBIN,TOTAL 0.5 mg/dL (0.2-1.0); BUN - BLOOD UREA NITROGEN 14 mg/dL (6-20); CALCIUM 9.7 mg/dL (8.5-10.3); CARBON DIOXIDE - CO2 29 mmol/L (21-32); CHLORIDE 104 mmol/L (101-111); CHOL/HDL RATIO 2.7 (<4.4); CHOLESTEROL 122 mg/dL; CK- CREATINE KINASE 39 IU/L (22-269); CREATININE 0.7 mg/dL (0.4-1.0); GFR - MDRD 80 (>89); GLUCOSE 171 mg/dL (70-100); HDL CHOLESTEROL 45 mg/dL; LDL CHOLESTEROL,CALCULATED 57 mg/dL; LDL/HDL RATIO 1.3 (<4.4); POTASSIUM 4.5 mmol/L (3.5-5.0); SODIUM 141 mmol/L (135-145); TOTAL PROTEIN 6.9 g/dL (6.7-8.2); TRIGLYCERIDES 99 mg/dL; VLDL CHOLESTEROL 20 mg/dL
[2021-06-23 21:16] LABS: ESTIMATED AVERAGE GLUCOSE 183 mg/dL (70-100)
== END 2021-06-23 10:40 | disposition home or self-care (01) ==
LOC: LAB.N 10:39
PROVIDERS: ATTEND Internal Medicine
DX: I10 Essential (primary) hypertension (principal); Z13.6 Encounter for screening for cardiovascular disorders; Z79.899 Other long term (current) drug therapy; C50.919 Malignant neoplasm of unspecified site of unspecified female breast; E11.9 Type 2 diabetes mellitus without complications; E78.3 Hyperchylomicronemia; K26.9 Duodenal ulcer, unspecified as acute or chronic, without hemorrhage or perforation
CPT/HCPCS: 36415; 80053; 80061; 82043; 82306; 82550; 82570; 83036; 83721; 84443; 85025

== ENCOUNTER 2022-11-03 10:16 | Outpatient (CLI) | payer MEDICARE, BC ==
[2022-11-03 12:35] LABS: BASOPHILS # (AUTO) 0.1 10^3/uL (0.0-0.1); BASOPHILS % (AUTO) 0.8 %; EOSINOPHILS # (AUTO) 0.1 10^3/uL (0.0-0.7); EOSINOPHILS % (AUTO) 2.3 %; HCT - HEMATOCRIT 37.2 % (37.0-47.0); HGB - HEMOGLOBIN 11.5 g/dL (12.0-16.0); LYMPHOCYTES # (AUTO) 1.6 10^3/uL (1.5-3.5); MEAN CORPUSCULAR HEMOGLOBIN 27.2 pg (27.0-31.0); MEAN CORPUSCULAR HGB CONC 30.9 g/dL (32.0-36.0); MEAN CORPUSCULAR VOLUME 87.9 fL (81.0-99.0); MEAN PLATELET VOLUME 11.1 fL (7.9-10.8); MONOCYTES # (AUTO) 0.5 10^3/uL (0.0-1.0); MONOCYTES % (AUTO) 7.4 %; NEUTROPHILS # (AUTO) 3.8 10^3/uL (1.5-6.6); NEUTROPHILS % (AUTO) 63.2 %; PLT - PLATELET COUNT 210 10^3/uL (130-450); RED BLOOD COUNT 4.23 10^6/uL (4.20-5.40); RED CELL DISTRIBUTION WIDTH 13.4 % (12.0-15.0); WHITE BLOOD COUNT 6.1 x10^3/uL (4.8-10.8)
[2022-11-03 12:50] LABS: ESTIMATED AVERAGE GLUCOSE 171 mg/dL (70-100); HEMOGLOBIN A1c% 7.6 % (4.27-6.07)
[2022-11-03 12:56] LABS: ALBUMIN 4.2 g/dL (3.2-5.5); ALBUMIN/GLOBULIN RATIO 1.4 (1.0-2.2); ALKALINE PHOSPHATASE 45 IU/L (42-121); ALT ALANINE AMINOTRANSFERASE 14 IU/L (10-60); AST ASPARTATE AMINOTRANSFERASE 17 IU/L (10-42); BILIRUBIN,TOTAL 0.6 mg/dL (0.2-1.0); BUN - BLOOD UREA NITROGEN 19 mg/dL (6-20); CARBON DIOXIDE - CO2 31 mmol/L (21-32); CHLORIDE 104 mmol/L (101-111); CHOL/HDL RATIO 2.7 (<4.4); CHOLESTEROL 129 mg/dL; CREATININE 0.8 mg/dL (0.6-1.3); GFR - MDRD 69 (>89); GLUCOSE 184 mg/dL (74-104); HDL CHOLESTEROL 47 mg/dL; LDL CHOLESTEROL,CALCULATED 57 mg/dL; LDL/HDL RATIO 1.2 (<4.4); POTASSIUM 4.1 mmol/L (3.5-4.5); SODIUM 138 mmol/L (135-145); TOTAL PROTEIN 7.1 g/dL (6.4-8.9); TRIGLYCERIDES 123 mg/dL (48-352); VLDL CHOLESTEROL 25 mg/dL
[2022-11-03 13:09] LABS: CREATININE,URINE 77.6 mg/dL; MICROALBUM/CREATININE RATIO,UR 82.5 ug/mg (<30.0); MICROALBUMIN,URINE 6.4 mg/dL; THYROID STIMULATING HORMONE 2.51 uIU/mL (0.34-5.60)
== END 2022-11-03 10:17 | disposition home or self-care (01) ==
LOC: LAB.N 10:16
PROVIDERS: ATTEND Internal Medicine
DX: Z00.00 Encounter for general adult medical examination without abnormal findings (principal); D64.9 Anemia, unspecified; E11.9 Type 2 diabetes mellitus without complications; C50.919 Malignant neoplasm of unspecified site of unspecified female breast; E78.5 Hyperlipidemia, unspecified; I10 Essential (primary) hypertension; M81.0 Age-related osteoporosis without current pathological fracture; N32.81 Overactive bladder; K27.9 Peptic ulcer, site unspecified, unspecified as acute or chronic, without hemorrhage or perforation; Z79.899 Other long term (current) drug therapy
CPT/HCPCS: 36415; 80053; 80061; 82043; 82306; 82570; 82607; 83036; 83721; 84443; 85025